=== PATIENT | male | born 1965 | race Caucasian/White ===

== ENCOUNTER → 2018-10-06 | Outpatient (CLI) | payer OTHER | LOC: FIMAGING 06:59 | PROVIDERS: ATTEND Internal Medicine Hematology & Oncology | DX: D75.1 Secondary polycythemia (principal); E83.118 Other hemochromatosis; E83.110 Hereditary hemochromatosis; K76.0 Fatty (change of) liver, not elsewhere classified ==

== ENCOUNTER 2019-02-07 08:52 | Outpatient (CLI) | payer OTHER ==
[2019-02-07] MEDS ORDERED: FLUMAZENIL 0.5 MG/5 ML MDV IVP PRN (09:07)
[2019-02-07] MEDS ORDERED: HEPARIN 10,000 UNIT/10 ML MDV (1,000 UNIT/ML) IVP PRN (09:07)
[2019-02-07] MEDS ORDERED: PROTAMINE SULFATE 50 MG/5 ML VIAL IVP PRN (09:07)
[2019-02-07] MEDS ORDERED: NALOXONE HCL 0.4 MG/ML INJ IVP PRN (09:07)
[2019-02-07] MEDS ORDERED: ALTEPLASE 2 MG VIAL IVP PRN (09:07)
[2019-02-07] MEDS ORDERED: GLUCAGON HCL 1 MG VIAL IVP PRN (09:07)
[2019-02-07] MEDS ORDERED: MEPERIDINE 25 MG/ML SYR IVP PRN (09:07)
[2019-02-07] MEDS ORDERED: MIDAZOLAM 2 MG/2 ML VIAL ONE (09:16)
[2019-02-07] MEDS ORDERED: fentaNYL 100 MCG/2 ML INJ ONE (09:16)
[2019-02-07] MEDS ORDERED: NALOXONE HCL 0.4 MG/ML INJ ONE (09:16)
[2019-02-07] MEDS ORDERED: FLUMAZENIL 0.5 MG/5 ML MDV IVP ONE (09:16)
[2019-02-07] MEDS ORDERED: LIDOCAINE 1% 300 MG/30 ML SDV ONE (09:41)
--- NOTE | 2019-02-07 10:18 | PDRADPRE ---
Radiology History & Physical Indication for procedure: liver disease (Hemochromatosis = US guided liver biopsy) Home medications: Synthroid 100 mcg PO DAILY 02/09/14 [Last Taken Unknown] Xanax 0.5 mg PO PRN 02/06/19 [Last Taken Unknown] Allergies/Adverse Reactions: naproxen [From Naprosyn] Allergy (Severe, Verified 02/06/19 15:58) Anxiety Mental status: A&Ox3 Heart exam: regular rate and rhythm Lungs exam: clear to auscultation Mallampati Score: Class 2
--- NOTE | 2019-02-07 10:18 | PDPROPOC ---
Sedation Plan of Care Sedation Plan of Care: vital signs stable, mental status noted, patient educated of risks, benefits, alternatives, patient can tolerate sedation ASA Classification: ASA 2 Planned drugs: fentanyl, midazolam Mallampati Score: Class 2 Mallampati Reference Image: Patient passed 3-3-2 rule?: Yes
[2019-02-07 10:20] LABS: PLATELET COUNT 276 10^3/uL (150-400)
[2019-02-07 10:33] LABS: INR 0.92 (0.83-1.16)
[2019-02-07] MEDS ORDERED: oxyCODONE IR 5 MG TAB PO PRN (11:07)
[2019-02-07] MEDS ORDERED: ONDANSETRON 4 MG/2 ML VIAL IVP PRN (11:07)
--- NOTE | 2019-02-07 11:09 | PDRADPN ---
Radiology Procedure Note Date of Procedure: 02/07/19 Radiologist: Ryan Osborne Anesthesia: IV Sedation Pre-op Diagnosis: Hemochromatosis Post-op Diagnosis: Hemochromatosis Indication: Hemochromatosis Procedure: US guided liver biopsy Finding(s): 18 ga cores placed in metal free specimen container and formalin. Inf/Abcess present in the surg proc area at time of surgery?: No
[2019-02-07] MEDS: NS 1,000 ML IV SCH (11:37)
[2019-02-07] MEDS: MIDAZOLAM 2 MG/2 ML VIAL IVP PRN (11:38)
[2019-02-07] MEDS: fentaNYL 100 MCG/2 ML INJ IVP PRN (11:38)
[2019-02-07 14:13] VITALS: BP 106/61
== END 2019-02-07 14:05 | disposition home or self-care (01) ==
LOC: FIMAGING 08:52
PROVIDERS: ATTEND Internal Medicine
PROC: 0FB03ZX Excision of Liver, Percutaneous Approach, Diagnostic (ICD-10-PCS; principal; 2019-02-07 11:10)
DX: K76.0 Fatty (change of) liver, not elsewhere classified (principal); E83.110 Hereditary hemochromatosis
CPT/HCPCS: J2250; J2310; J3010